=== PATIENT | female | born 1950 | race Caucasian/White ===

== ENCOUNTER 2019-05-12 11:07 | Emergency (ER) | payer OTHER, SELFPAY ==
[2019-05-12 11:18] VITALS: BP 156/90; PULSE 88; RESP 16; TEMP 36.5; O2SAT 98
--- NOTE | 2019-05-12 11:23 | W.ED.GENAD ---
Discharge Plan Disposition Patient Disposition: HOME Condition: Fair Discharge Details Chief Complaint: Nausea/Vomit/Diar Clinical Impression: Diarrhea Primary Care Provider: Janiya,Local ED Provider: Cecile Cooney Home Meds and New Rx's Prescriptions: New metronidazole [Flagyl] 500 mg tablet 500 mg PO BID Qty: 14 RF: 0 Continued esomeprazole magnesium [Nexium] 40 mg Capsule,Delayed Release(Dr/Ec) 40 mg PO DAILY RF: 0 diltiazem HCl 30 mg Tablet 30 mg PO DAILY RF: 0 Discharge Instructions Instructions: Acute Diarrhea (ED) Additional Instructions: Concerned that you may have a Giardia infection. Plan to treat with Flagyl as prescribed. Please call for your results next week, number listed above. Encourage hydration. If you develop fevers/chills, increased abdominal pain, inability to stay hydrated or other new/worsening symptoms please seek care urgently once again. Follow up with primary care in one week if symptoms persist. Discharge Data Discharge Date/Time-TO BE ENTERED AT DEPARTURE: 05/12/19 14:09 Medical Decision Making Patient is a 68-year-old female presents today with chief complaint of nausea and diarrhea. She reports that she began having nausea after breakfast yesterday. States that she has multiple 2 to watery diarrhea episodes yesterday and into this morning. States that it has been light in color very watery. Is endorsing some cramping particular in the epigastric region. Surgical history pertinent for cholecystectomy. On exam, patient appears nontoxic. Patient slightly hypertensive otherwise vital signs within normal limits. Patient is having some discomfort particularly in the epigastric region. Plan for labs, hydration. Patient is currently camping, I am concerned for possible Giardia. No recent travel out of the country. No recent antibiotic usage. Patient is declining any pain medication or antiemetics at this time Labs show WBC of 3.12. Do not have previous for comparison, patient usure of baseline. Discussed jim thtis is low, she will discuss further with PCP. Positive Lactoferrin. C.Diff negative. Giardia send out lab, pending. Other labs are without signifcant abnormality. Discussed this with the patient. I am concerned, as the patient is camping and has had such watery diarrhea, that she may have Giardia. First line agents not available at local pharmacies. Will treat with Flagyl. Discussed this with the patient. She was given strict return precautions. She has been agressivey hydrating, I encouraged she continue. She will f/u [facility] PCP next week if symptoms are not improved. All questions and concerns were addressed, she isin agreement with [facility] plan. HPI General Mode of arrival: ambulatory. Date/Time Provider Initiated Documentation: 05/12/19 11:15. Limitations to Documentation: no limitations. Information obtained by: patient and RN notes reviewed. History of Present Illness 68 year old F presents to the emergency department with the chief complaint of nausea and diarrhea, described as moderate, with intensity rated at 7. Quality is described as aching, and is localized to the abdomen (epigastric). Patient reports no radiation. Patient started experiencing this day(s) (1) and it has been constant. No relieving factors improve symptom(s), Eating worsens symptoms . Patient notes fever/chills (states she had chills last night) and nausea/vomiting (endorses nausea, no vomiting); denies chest pain, cough, diaphoresis, headaches, loss of appetite, rash, shortness of breath, syncope and weakness. Patient did receive the following treatments prior to arrival, none Related Data Home Medications Medication Instructions Recorded Confirmed diltiazem HCl 30 mg PO DAILY 05/12/19 05/12/19 esomeprazole magnesium [Nexium] 40 mg PO DAILY 05/12/19 05/12/19 metronidazole [Flagyl] 500 mg PO BID #14 tab 05/12/19 Previous Rx's Medication Instructions Recorded metronidazole [Flagyl] 500 mg PO BID #14 tab 05/12/19 Allergies Allergy/AdvReac Type Severity Reaction Status Date / Time Sulfa (Sulfonamide Allergy Hives Unverified 05/12/19 11:16 Antibiotics) General Stated Complaint: Nausea/Vomit/Diar JESUS: 3 Review of Systems Constitutional Reports as per HPI, Denies chills, Denies fatigue, Denies fever(s) and Denies headache(s) ENT Denies headache(s) Cardiovascular Reports as per HPI, Denies chest pain and Denies dyspnea Respiratory Reports as per HPI, Denies cough and Denies dyspnea Gastrointestinal Reports as per HPI Musculoskeletal Reports as per HPI and Denies back pain Integumentary/Breasts Reports as per HPI and Denies rash Neurologic Reports as per HPI and Denies headache(s) Endocrine Denies fatigue [facility] Social History Smoking/Tobacco Use Status: Never Alcohol Intake: current Alcohol Intake frequency: 0-2 drinks per day Drug use: Never Do you feel safe at home: Yes Do you feel safe in your relationship?: Yes Exam Const General: cooperative, healthy appearing, comfortable, no acute distress and well developed Nutritional Appearance: average body habitus and well nourished Orientation: alert and awake HENFL Head: normal to inspection Mouth: moist mucous membranes Resp Effort & Inspection: normal respiratory effort, able to speak in complete sentences and no respiratory distress Auscultation: clear to auscultation bilaterally, no rales, no rhonchi and no wheezes Cardio Rate: regular rate Rhythm: regular rhythm Heart Sounds: S1 normal and S2 normal GI Inspection: normal to inspection and non-distended Palpation: soft, no hepatosplenomegaly, not firm, no guarding, no hernias, no pulsatile masses, not rigid, tender in the epigastrum; with no rebound tenderness and No ascites Percussion: normal to percussion Auscultation: normal bowel sounds Back/Spine/Pelvis Back: no CVA tenderness Skin General skin exam: no rashes or lesions noted Trauma: no lacerations or abrasions Neuro General: alert and awake Cognition: normal cognition Speech: speech normal Gait: normal gait Psych Appearance: grossly normal and well kempt Mental Status: mental status grossly normal Speech and Movement: speech and movement normal Course Vital Signs Temperature 36.5 C 05/12/19 11:18 Pulse 88 05/12/19 11:18 Respiratory Rate 16 05/12/19 11:18 Blood Pressure 156/90 H 05/12/19 11:18 Pulse Oximetry 98 05/12/19 11:18 Temperature 36.5 C 05/12/19 11:18 Temperature Source Temporal Artery Scan 05/12/19 11:18 Pulse 88 05/12/19 11:18 Respiratory Rate 16 05/12/19 11:18 Respiratory Effort Non-Labored 05/12/19 11:21 Blood Pressure 156/90 H 05/12/19 11:18 Blood Pressure Position Sitting 05/12/19 11:18 Pulse Oximetry 98 05/12/19 11:18 Oxygen Delivery Method Room Air 05/12/19 11:18 Oxygen Flow Rate 0 05/12/19 11:18 Pain Level 7 05/12/19 11:18
[2019-05-12] MEDS: Normal Saline 1,000 ML 1000 ML IV (11:38)
[2019-05-12 11:49] LABS: Absolute Basophil Count 0.01 k/cumm (0.0-0.2); Absolute Eosinophil Count 0.03 k/cumm (0.0-0.7); Absolute Lymphocyte Count 0.78 k/cumm (1.2-3.4); Absolute Monocyte Count 0.44 k/cumm (0.11-0.7); Absolute Neutrophil Count 1.86 k/cumm (1.2-6.7); Basophils % 0.3; HGB 14.4 g/dL (12.0-15.5); Mean Corp. HGB Concentration 33.5 g/dL (32.0-36.0); Mean Corpuscular Hemoglobin 30.9 pg (27.0-33.0); Mean Corpuscular Volume 92.3 fL (80-95); Mean Platelet Volume 10.4 fL (8.0-11.0); Monocytes % 14.1; Neutrophils % 59.6; Platelet Count 172 x1000/uL (130-400); RBC 4.66 m/cumm (4.00-5.20); RBC Distribution Width 12.5 % (11.7-14.6); White Blood Cell Count 3.12 k/cumm (4.4-10.8)
[2019-05-12 12:16] LABS: ALT 24 U/L (12-78); AST 17 U/L (15-37); Albumin 3.8 g/dL (3.4-5.0); Alkaline Phosphatase 68 U/L (46-116); Anion Gap 10.6 mmol/L (3-11); BUN 14 mg/dL (7-18); Bilirubin, Total 0.5 mg/dL (0.2-1.0); CO2 26.4 mmol/L (21.0-32.0); CREATININE 0.82 mg/dL (0.55-1.02); Calcium 9.2 mg/dL (8.5-10.1); Chloride 105 mmol/L (98-107); Glucose 114 mg/dL (70-100); Potassium 4.1 mmol/L (3.5-5.1); Sodium 142 mmol/L (136-145); Total Protein 7.3 g/dL (6.4-8.2)
[2019-05-12 12:19] LABS: Troponin I < 0.05 ng/mL (0.00-0.06)
--- NOTE | 2019-05-12 12:19 | ED.GENADUL_ITS ---
Discharge Plan Disposition Patient Disposition: HOME Condition: Fair Discharge Details Chief Complaint: Nausea/Vomit/Diar Clinical Impression: Diarrhea Primary Care Provider: Janiya,Local ED Provider: Cecile Cooney Home Meds and New Rx's Prescriptions: New metronidazole [Flagyl] 500 mg tablet 500 mg PO BID Qty: 14 RF: 0 Continued esomeprazole magnesium [Nexium] 40 mg Capsule,Delayed Release(Dr/Ec) 40 mg PO DAILY RF: 0 diltiazem HCl 30 mg Tablet 30 mg PO DAILY RF: 0 Discharge Instructions Instructions: Acute Diarrhea (ED) Additional Instructions: Concerned that you may have a Giardia infection. Plan to treat with Flagyl as prescribed. Please call for your results next week, number listed above. Encourage hydration. If you develop fevers/chills, increased abdominal pain, inability to stay hydrated or other new/worsening symptoms please seek care urgently once again. Follow up with primary care in one week if symptoms persist. Discharge Data Discharge Date/Time-TO BE ENTERED AT DEPARTURE: 05/12/19 14:09 Medical Decision Making Patient is a 68-year-old female presents today with chief complaint of nausea and diarrhea. She reports that she began having nausea after breakfast yesterday. States that she has multiple 2 to watery diarrhea episodes yesterday and into this morning. States that it has been light in color very watery. Is endorsing some cramping particular in the epigastric region. Surgical history pertinent for cholecystectomy. On exam, patient appears nontoxic. Patient slightly hypertensive otherwise vital signs within normal limits. Patient is having some discomfort particularly in the epigastric region. Plan for labs, hydration. Patient is currently camping, I am concerned for possible Giardia. No recent travel out of the country. No recent antibiotic usage. Patient is declining any pain medication or antiemetics at this time Labs show WBC of 3.12. Do not have previous for comparison, patient usure of baseline. Discussed jim thtis is low, she will discuss further with PCP. Positive Lactoferrin. C.Diff negative. Giardia send out lab, pending. Other labs are without signifcant abnormality. Discussed this with the patient. I am concerned, as the patient is camping and has had such watery diarrhea, that she may have Giardia. First line agents not available at local pharmacies. Will treat with Flagyl. Discussed this with the patient. She was given strict return precautions. She has been agressivey hydrating, I encouraged she continue. She will f/u [facility] PCP next week if symptoms are not improved. All questions and concerns were addressed, she isin agreement with [facility] plan. HPI General Mode of arrival: ambulatory . Date/Time Provider Initiated Documentation: 05/12/19 11:15 . Limitations to Documentation: no limitations . Information obtained by: patient and RN notes reviewed . History of Present Illness 68 year old F presents to the emergency department with the chief complaint of nausea and diarrhea, described as moderate, with intensity rated at 7. Quality is described as aching, and is localized to the abdomen (epigastric). Patient reports no radiation. Patient started experiencing this day(s) (1) and it has been constant. No relieving factors improve symptom(s), Eating worsens symptoms . Patient notes fever/chills (states she had chills last night) and nausea/vomiting (endorses nausea, no vomiting); denies chest pain, cough, diaphoresis, headaches, loss of appetite, rash, shortness of breath, syncope and weakness. Patient did receive the following treatments prior to arrival, none Related Data Home Medications Medication Instructions Recorded Confirmed diltiazem HCl 30 mg PO DAILY 05/12/19 05/12/19 esomeprazole magnesium [Nexium] 40 mg PO DAILY 05/12/19 05/12/19 metronidazole [Flagyl] 500 mg PO BID #14 tab 05/12/19 Previous Rx's Medication Instructions Recorded metronidazole [Flagyl] 500 mg PO BID #14 tab 05/12/19 Allergies Allergy/AdvReac Type Severity Reaction Status Date / Time Sulfa (Sulfonamide Allergy Hives Unverified 05/12/19 11:16 Antibiotics) General Stated Complaint: Nausea/Vomit/Diar JESUS: 3 Review of Systems Constitutional Reports as per HPI, Denies chills, Denies fatigue, Denies fever(s) and Denies headache(s) ENT Denies headache(s) Cardiovascular Reports as per HPI, Denies chest pain and Denies dyspnea Respiratory Reports as per HPI, Denies cough and Denies dyspnea Gastrointestinal Reports as per HPI Musculoskeletal Reports as per HPI and Denies back pain Integumentary/Breasts Reports as per HPI and Denies rash Neurologic Reports as per HPI and Denies headache(s) Endocrine Denies fatigue [facility] Social History Smoking/Tobacco Use Status: Never Alcohol Intake: current Alcohol Intake frequency: 0-2 drinks per day Drug use: Never Do you feel safe at home: Yes Do you feel safe in your relationship?: Yes Exam Const General: cooperative, healthy appearing, comfortable, no acute distress and well developed Nutritional Appearance: average body habitus and well nourished Orientation: alert and awake HENSC Head: normal to inspection Mouth: moist mucous membranes Resp Effort & Inspection: normal respiratory effort, able to speak in complete sentences and no respiratory distress Auscultation: clear to auscultation bilaterally, no rales, no rhonchi and no wheezes Cardio Rate: regular rate Rhythm: regular rhythm Heart Sounds: S1 normal and S2 normal GI Inspection: normal to inspection and non-distended Palpation: soft, no hepatosplenomegaly, not firm, no guarding, no hernias, no pulsatile masses, not rigid, tender in the epigastrum; with no rebound tenderness and No ascites Percussion: normal to percussion Auscultation: normal bowel sounds Back/Spine/Pelvis Back: no CVA tenderness Skin General skin exam: no rashes or lesions noted Trauma: no lacerations or abrasions Neuro General: alert and awake Cognition: normal cognition Speech: speech normal Gait: normal gait Psych Appearance: grossly normal and well kempt Mental Status: mental status grossly normal Speech and Movement: speech and movement normal Course Vital Signs Temperature 36.5 C 05/12/19 11:18 Pulse 88 05/12/19 11:18 Respiratory Rate 16 05/12/19 11:18 Blood Pressure 156/90 H 05/12/19 11:18 Pulse Oximetry 98 05/12/19 11:18 Temperature 36.5 C 05/12/19 11:18 Temperature Source Temporal Artery Scan 05/12/19 11:18 Pulse 88 05/12/19 11:18 Respiratory Rate 16 05/12/19 11:18 Respiratory Effort Non-Labored 05/12/19 11:21 Blood Pressure 156/90 H 05/12/19 11:18 Blood Pressure Position Sitting 05/12/19 11:18 Pulse Oximetry 98 05/12/19 11:18 Oxygen Delivery Method Room Air 05/12/19 11:18 Oxygen Flow Rate 0 05/12/19 11:18 Pain Level 7 05/12/19 11:18
[2019-05-12 12:36] LABS: Lipase 92 U/L (73-393)
== END 2019-05-12 14:09 | disposition home or self-care (01) ==
PROVIDERS: Emergency Provider Physician Assistant
DX: R19.7 Diarrhea, unspecified (principal); R11.2 Nausea with vomiting, unspecified; Z90.49 Acquired absence of other specified parts of digestive tract
CPT/HCPCS: 36415; 80053; 83690; 87329; 96360; 99283; 83630; 83735; 84484; 85025; 87324